=== PATIENT | male | born 1945 | race African-American/Black ===

== ENCOUNTER 2016-07-08 13:16 | Observation (INO) | payer MEDICARE ==
--- NOTE | ~2016-07-08 | OP ---
Record Of Operation [facility] [address] [place]. [address] NAME: BRENNA KNOWLES : 43 STATUS : DIS Cheng PAT#: [id number] AGE: 71 ADM/REG DATE : 07/08/16 MR#: [id number] REPORT SERV DATE: 07/10/16 DICTATED BY: LAURENT GIANG DATE: 07/09/16 REPORT STATUS : Draft TRANSCRIBED BY: MODL DATE: 07/09/16 DATE OF PROCEDURE: 07/08/2016 PREOPERATIVE DIAGNOSIS: Chronic cholecystitis with cholelithiasis. Procedure laparoscopic cholecystectomy site). POSTOPERATIVE DIAGNOSIS: Chronic cholecystitis with cholelithiasis. PROCEDURE: Laparoscopic cholecystectomy (four-site). SURGEON: Laurent Giang M.D. DESCRIPTION OF OPERATIVE PROCEDURE: This procedure will be amended with a modifier 22 which reflects unusual procedural services given to the complexity and the severe scarring and adhesions and length greater than 2-1/2 hours of the surgical procedure. The patient brought to the operating suite, placed in supine position, underwent satisfactory general endotracheal anesthesia without incident. The skin of the abdomen was scrubbed, prepped, and draped in usual sterile fashion. 0.5% Marcaine with epinephrine utilized, supplemental local anesthesia at all intended trocar sites. Initially, an infraumbilical incision was performed dissecting through the skin, through the umbilical fascia. This was grasped with a Alejandra clamp and elevated, and a disposable Veress insufflation needle was inserted through the umbilical fascia in the peritoneal cavity. Intraperitoneal tip location was ascertained using the saline hanging drop method. CO2 was insufflated for pressures of 15 mmHg throughout the case. After adequate insufflation pressure achieved, the Veress needle was removed, and a disposable bladed shielded 11 mm trocar was placed through the umbilical fascia into the peritoneal cavity following which a rigid forward-viewing 10 mm laparoscope was inserted. Visualization of the intraabdominal parietes revealed no evidence of injury from initial insufflation or puncture. There were however dense omental and small-bowel adhesions just to the right lateral aspect of the umbilicus and into the right upper quadrant from previous transverse incision in the right lower quadrant for right colon resection. In fact, there were marked adhesions extending all the way up to and including the leading edge of the gallbladder. Because of this, alternate trocar site placement was utilized. Initially, two 5 mm trocars were placed in the left paramedian rectus sheath under direct visualization and then using a combination of the 5 mm and 10 mm laparoscopes as well as the 30-degree angle viewing 10 mm laparoscope at the Veress trocar sites, the small-bowel adhesions to the previous right lower quadrant transverse incision were taken down with a combination of sharp scissor dissection, blunt dissection, and cautery dissection. This was successful in cleaning adhesions to it from the underneath part of the abdominal wall incision. The patient was placed in Trendelenburg position. An additional 5 mm trocar was placed in the right subcostal area. Visualization of the liver and subhepatic space revealed extreme Record Of Operation [facility] [address] [place]. [address] NAME: BRENNA KNOWLES : 43 STATUS : DIS Cheng PAT#: [id number] AGE: 71 ADM/REG DATE : 07/08/16 MR#: [id number] REPORT SERV DATE: 07/10/16 DICTATED BY: LAURENT GIANG DATE: 07/09/16 REPORT STATUS : Draft TRANSCRIBED BY: BELLE DATE: 07/09/16 amount of scarring again from previous right colon resection probably from mobilization of the hepatic flexure. The proximal transverse colon was densely adherent to the right and left lobe of the liver, and I can only see the dome of the gallbladder above the colon. The colon was also adherent to the falciform ligament, and it was also noted that the stomach and duodenum were adherent to the gallbladder wall and to the falciform ligament. What followed were many minutes or hour more of tedious enterolysis using combination of sharp, blunt, and cautery dissection to expose the gallbladder and biliary fossa by taking down these complex, very dense adhesions. At no point did I feel that the full thickness of the duodenal, colonic, or small bowel wall was violated. I did notice serosal tear in the stomach wall. After much tedious dissection, I was able to grasp and elevate the fundus and body and infundibular portion of the gallbladder. Dissection of triangle of Calot was very tedious and difficult, but eventually, I was able identify what I suspected to be the cystic duct. A single clip was placed on the gallbladder site. The cystic duct and a small enterotomy was created in the cystic duct with free spillage of bile. Following this, I percutaneously introduced cholangio-sheath, it was inserted through the upper abdominal wall under direct visualization, and the saline flushed catheter left in the cystic duct was secured with Weck clip. Sequential fluoroscopic cholangiography was performed showing good visualization of the cystic duct, the distal common hepatic duct, the entire common bile duct with free spillage of dye noted into the duodenum. The visualization included the proximal common hepatic duct and what I felt to be the right hepatic duct. I was never able to visualize the left hepatic duct to my satisfaction. Further dissection in this area after removing the retaining clip and securing the cystic duct with Weck clips revealed the critical view, and I was able to divide the cystic duct and the cystic artery. Continued spatula cautery dissection was utilized supplemented with irrigation and aspiration to remove the gallbladder from subhepatic space. Again inspection of the pylorus, the duodenum, and the colon, and small bowel revealed no violation of the seromuscular wall. The gallbladder was placed inside the Endo retrieval pouch and all trocars removed. No muscular bleeding was noted. CO2 was allowed to egress from peritoneal cavity. Endo retrieval pouch was removed. The gallbladder was morcellated and found to contain 1 small 5 to 7 mm stone. CO2 was allowed to egress from the peritoneal cavity. The umbilicus was closed with [id number] suture of 0 Vicryl at the fascial level. Subcutaneous tissue closed at all trocar sites with interrupted 4-0 Vicryl running subcuticular stitch, 4-0 Vicryl for the skin. Dermabond skin adhesive placed. The patient tolerated the procedure well and was returned to PACU in stable condition. At Record Of Operation [address] [address] NAME: BRENNA KNOWLES : 43 STATUS : DIS Cheng PAT#: [id number] AGE: 71 ADM/REG DATE : 07/08/16 MR#: [id number] REPORT SERV DATE: 07/10/16 DICTATED BY: LAURENT GIANG DATE: 07/09/16 REPORT STATUS : Draft TRANSCRIBED BY: BELLE DATE: 07/09/16 termination of procedure, sponge, needle, lap, and instrument counts were correct x3. ESTIMATED BLOOD LOSS: 35 to 50 cc. WR/MODL Laurent Giang M.D. / [id number] CC: Esthela Wilson M.D.
[~2016-07-08 13:16] MED LIST: AVALIDE1 TA1 PO; CIALIS5 MG PO; COREG6 PO; DIABETA5 PO; DIOVAN HCT320 MG/25 PO; FLECAINIDE150 MG PO; FLOMAX4 PO; GLUCOPHAGE1000 MG PO; HYDROCHLOROT12.5 MG PO; HYZAAR1 TAB PO; IBU800 PO; MICRONASE5 MG PO; NABUMETONE750 MG PO; NIFEDIAC CC30 MG PO; PRAVAC PO; TAMBOCOR150 MG PO
[2016-07-08 13:52] LABS: HEMATOCRIT 38.6 % (40.0-51.0); HEMOGLOBIN 13.7 g/dL (13.6-17.8)
[2016-07-08 14:06] LABS: A/G RATIO 0.9 (0.7-1.9); ALBUMIN 3.5 G/DL (3.5-5.0); ALKALINE PHOSPHATASE 59 U/L (45-117); CALCIUM, SERUM 9.3 MG/DL (8.5-10.4); CHLORIDE, SERUM 106 MMOL/L (96-112); CO2 (CARBON DIOXIDE) 29 MMOL/L (24-34); CREATININE 1.43 MG/DL (0.70-1.30); GFR AFRICAN AMERICAN 56 ML/MIN (>=60); GFR NON AFRICAN AMERICAN 49 ML/MIN (>=60); GLUCOSE, SERUM 157 MG/DL (60-99); POTASSIUM, SERUM 4.1 MMOL/L (3.5-5.3); SGOT(AST) 9 U/L (5-40); SGPT(ALT) 19 U/L (5-65); SODIUM, SERUM 140 MMOL/L (135-148); TOTAL BILIRUBIN 0.4 MG/DL (0-1.2); TOTAL PROTEIN 7.5 G/DL (6.0-8.5)
[2016-07-08 14:08] LABS: BUN (BLOOD UREA NITROGEN) 23 MG/DL (6-23)
[2016-07-09 06:11] LABS: BASOPHILS 0.4 %; BASOPHILS ABSOLUTE 0.04 10/3/uL (0.0-0.16); EOSINOPHILS 2.4 %; EOSINOPHILS ABSOLUTE 0.21 10/3/uL (0.0-0.53); HEMATOCRIT 36.7 % (40.0-51.0); HEMOGLOBIN 12.7 g/dL (13.6-17.8); IMMATURE GRANULOCYTES 0.2 %; IMMATURE GRANULOCYTES ABSOLUTE 0.02 10/3/uL (0.0-0.11); LYMPHOCYTES 13.6 %; LYMPHOCYTES ABSOLUTE 1.21 10/3/uL (0.67-4.30); MEAN CORPUS HGB CONC 34.6 g/dL (32.0-36.0); MEAN CORPUSCULAR HEMOGLOB 30.2 pg (26.0-34.0); MEAN CORPUSCULAR VOLUME 87.4 fL (80-100); MEAN PLATELET VOLUME 10.3 fL (9.2-13.0); MONOCYTES 8.3 %; MONOCYTES ABSOLUTE 0.74 10/3/uL (0.21-1.20); NEUTROPHILS 75.1 %; NEUTROPHILS ABSOLUTE 6.69 10/3/uL (2.02-8.40); PLATELET COUNT 193 10/3/uL (150-400); RBC DISTRIBUTION WIDTH 13.3 % (12.0-16.0); WHITE BLOOD CELLS 8.9 10/3/uL (4.5-10.5)
[2016-07-09 06:14] LABS: MANUAL DIFF NO %
[2016-07-09 06:27] LABS: A/G RATIO 0.9 (0.7-1.9); ALBUMIN 3.1 G/DL (3.5-5.0); ALKALINE PHOSPHATASE 48 U/L (45-117); BUN (BLOOD UREA NITROGEN) 22 MG/DL (6-23); CALCIUM, SERUM 8.6 MG/DL (8.5-10.4); CHLORIDE, SERUM 106 MMOL/L (96-112); CO2 (CARBON DIOXIDE) 30 MMOL/L (24-34); CREATININE 1.32 MG/DL (0.70-1.30); GFR AFRICAN AMERICAN 62 ML/MIN (>=60); GFR NON AFRICAN AMERICAN 54 ML/MIN (>=60); GLOBULIN 3.5 G/DL (2.5-4.1); GLUCOSE, SERUM 135 MG/DL (60-99); POTASSIUM, SERUM 4.3 MMOL/L (3.5-5.3); SGOT(AST) 24 U/L (5-40); SGPT(ALT) 29 U/L (5-65); SODIUM, SERUM 139 MMOL/L (135-148); TOTAL BILIRUBIN 0.9 MG/DL (0-1.2); TOTAL PROTEIN 6.6 G/DL (6.0-8.5)
[2016-07-09] MEDS ORDERED: NORCO1 TA1 PO (10:37)
== END 2016-07-09 13:21 | disposition home or self-care (01) ==
LOC: SDC 13:16 → 5SO 20:13
PROVIDERS: Specialist
PROC: BF13YZZ Fluoroscopy of Gallbladder and Bile Ducts using Other Contrast (ICD-10-PCS; 2016-07-08)
PROC: 0FT44ZZ Resection of Gallbladder, Percutaneous Endoscopic Approach (ICD-10-PCS; principal; 2016-07-08 15:00)
DX: K80.10 Calculus of gallbladder with chronic cholecystitis without obstruction (principal); M19.90 Unspecified osteoarthritis, unspecified site; E11.9 Type 2 diabetes mellitus without complications; E78.5 Hyperlipidemia, unspecified; G47.33 Obstructive sleep apnea (adult) (pediatric); K21.9 Gastro-esophageal reflux disease without esophagitis; E11.8 Type 2 diabetes mellitus with unspecified complications; I10 Essential (primary) hypertension; Z98.890 Other specified postprocedural states; Z79.1 Long term (current) use of non-steroidal anti-inflammatories (NSAID); Z79.899 Other long term (current) drug therapy
CPT/HCPCS: 74300; 76705; 80053; 82962; 85014; 85018; 85025; 88304; 93005; 96374; 96376; A9270-GY; G0378; J0690; J1170; J2250; J2405; J2710; J3010; Q9967